=== PATIENT | female | born 1940 | race Caucasian/White ===

== ENCOUNTER 2017-02-17 21:42 | Emergency (ER) | payer MEDICARE, OTHER ==
[2017-02-17] MEDS ORDERED: TETRACAINE 0.5% OPHTH 15 ML BOTTLE ONE (22:18)
[2017-02-17] MEDS ORDERED: FLUORESCEIN STRIP 1 MG/STRIP STRIP ONE (22:18)
--- NOTE | 2017-02-17 23:27 | ER NURSING DOCUMENTATION ---
Nurse's Notes [facility] Name:Vivian Spence Age:76 yrs Sex:Female :1940 Arrival Date:02/17/2017 Time:21:42 Bed3 Private MD:Almas Mcdaniels Diagnosis:Conjunctival Foreign Body Presentation: 02/17 21:45 Acuity: ARCHANA 4 rh 21:58 Presenting complaint: Patient states: THINKS SHE HAS SOME EYE MAKE-UP IN HER LEFT EYE. lc UNABLE TO TELL IF HER VISION IS IMPAIRED, SINCE SHE DID NOT BRING HER GLASSES. Transition of care: Home. 21:58 Method Of Arrival: Private Vehicle Triage Assessment: 22:01 General: Appears in no apparent distress, well groomed, Behavior is cooperative. Pain: lc Denies pain. EENT: Eyes with foreign body noted in outer aspect of conjuctiva of left eye, UNDER UPPER LID. Neuro: Level of Consciousness is awake, alert, Oriented to person, place, time, event. Historical: - Allergies: Positive latex allergy; Betadine; MOST NARCOTICS; - Home Meds: 1. SEE MED LIST - PMHx: SEE LIST; - PSHx: SEE LIST; - Tetanus: < 10 years. - Ebola Screening: : Patient denies travel to an Ebola-affected area in the 21 days before illness onset. . - Immunization history: Flu Vaccine < 1 year. - Social history: Smoking status: Patient states was never smoker of tobacco. Screenin:03 Infectious Disease Risk None. Abuse screen: Denies threats or abuse. Denies injuries lc from another. Nutritional screening: No deficits noted. Assessment: 22:02 See Triage Assessment done by same RN. Vital Signs: 22:02 BP 155 / 86; Pulse 72; Resp 16; Temp 98.1; Pulse Ox 92% on R/A; Weight 58.97 kg; Height lc 4 ft. 8 in. (142.24 cm); Pain 0/10; 22:02 Body Mass Index 29.15 (58.97 kg, 142.24 cm) ED Course: :45 Patient arrived in ED. ma1 21:45 Almas Mcdaniels MD is Private Physician. [facility] 21:45 Triage completed. rh 21:57 Marie Mendez is Primary Nurse. rh 22:03 Valuables Remains with patient Patient has correct armband on for positive lc identification. Bed in low position. Call light in reach. Adult w/ patient. 22:32 Winston Vega MD is Attending Physician. tl1 22:59 Assist Provider Assist provider with eye exam of left eye. using fluorescein stain, lc Performed by Winston Vega MD Patient tolerated well. 23:21 Raheem Rawls MD is Referral Physician. tl1 Administered Medications: No medications were administered Outcome: 23:22 Discharge ordered by MD. tl1 23:25 Discharged to home ambulatory, with significant other. lc 23:25 Condition: good 23:25 Discharge Assessment: Patient awake, alert and oriented x 3. No cognitive and/or functional deficits noted. Patient verbalized understanding of disposition instructions. 23:25 Discharge instructions given to patient, significant other, Instructed on discharge instructions, follow up and referral plans. Demonstrated understanding of instructions. 23:26 Patient left the ED. lc Signatures: Nancy Cruz, RN RN Winston Riggs MD MD tl1 Marie Mendez Melissa [facility]
--- NOTE | 2017-02-19 23:26 | ER PHYSICIAN DOCUMENTATION ---
Physician Documentation [facility] Name:Vivian Spence Age:76 yrs Sex:Female :1940 Arrival Date:02/17/2017 Time:21:42 Bed3 Private MD:Almas Mcdaniels ED, Tom Disposition: 02/19 06:29 Chart complete. tl1 Disposition: 02/17/17 23:22 Discharged to Home/Self Care. Impression: Conjunctival Foreign Body. - Condition is Good. - Discharge Instructions: CONJUNCTIVAL FOREIGN BODY, Resolved. - Medical Reconciliation form form. - Follow up: Raheem Rawls MD; When: As needed; Reason: Recheck today's complaints. - Problem is new. - Symptoms are resolved. HPI: 02/17 22:20 This 76 yrs old Female presents to ER via Private Vehicle with complaints of tl1 Eye Injury. 22:20 Onset: The symptom(s)/episode began/occurred suddenly, today. She got a small piece of tl1 mascara caught in the upper outer eyelid, and it is very irritating to her. No change in her vision and no redness or d/c from the eye.. Historical: - Allergies: Positive latex allergy; Betadine; MOST NARCOTICS; - Home Meds: 1. SEE MED LIST - PMHx: SEE LIST; - PSHx: SEE LIST; - Tetanus: < 10 years. - Ebola Screening: : Patient denies travel to an Ebola-affected area in the 21 days before illness onset. . - Immunization history: Flu Vaccine < 1 year. - Social history: Smoking status: Patient states was never smoker of tobacco. ROS: 22:30 Eyes: Positive for foreign body sensation, Negative for blurry vision, discharge, tl1 photophobia, redness, visual disturbance, vision loss. 22:30 All other systems are negative. Exam: 22:30 Visual Acuity: I have reviewed the nursing documentation. tl1 22:30 Eyes: Periorbital structures: appear normal, Pupils: equal, round, and reactive to light and accomodation, Extraocular movements: intact throughout, Conjunctiva: normal, with the exception of a tiny, sub-millimeter dark alexis, consistent with a tiny piece of mascara.. Corneas: are normal, no foreign body, Sclera: no appreciated abnormality, Anterior chamber: normal, Lids and lashes: appear normal, a slit lamp exam was employed for the exam. Vital Signs: 22:02 BP 155 / 86; Pulse 72; Resp 16; Temp 98.1; Pulse Ox 92% on R/A; Weight 58.97 kg; Height lc 4 ft. 8 in. (142.24 cm); Pain 0/10; 22:02 Body Mass Index 29.15 (58.97 kg, 142.24 cm) MDM: 22:32 Patient medically screened. tl1 23:00 Differential diagnosis: Foreign body in left eye. Data reviewed: vital signs, nurses tl1 notes, and as a result, I will discharge patient. Counseling: I had a detailed discussion with the patient and/or guardian regarding: the historical points, exam findings, and any diagnostic results supporting the discharge/admit diagnosis, the need for outpatient follow up, to return to the emergency department if symptoms worsen or persist or if there are any questions or concerns that arise at home. Response to treatment: the patient's symptoms have resolved after treatment. ED course: The FB was easily removed with a Q tip and she felt better immediately.. Dispensed Medications: No medications were administered Signatures: Nancy Cruz, RN RN Winston Riggs MD MD tl1
== END 2017-02-17 23:27 | disposition home or self-care (01) ==
LOC: ER 21:42
DX: T15.12XA Foreign body in conjunctival sac, left eye, initial encounter (principal)
CPT/HCPCS: 99282; 99283